=== PATIENT | male | born 1980 | race Caucasian/White ===

== ENCOUNTER 2021-09-20 17:48 | Emergency (ER) | payer OTHER ==
[~2021-09-20 17:48] MED LIST: NEURONTIN 300300 MG PO; PREDNISONE 50 M50 MG PO
[2021-09-20] MEDS ORDERED: CYCLOBENZAPRINE10 MG PO (22:12)
[2021-09-20] MEDS ORDERED: PREDNISONE 10 M10 MG PO (22:12)
[2021-09-20] MEDS ORDERED: IBUPROFEN800 MG PO (22:12)
== END 2021-09-20 22:30 | disposition home or self-care (01) ==
LOC: ER1 17:48
DX: M51.36 Other intervertebral disc degeneration, lumbar region (principal); F17.210 Nicotine dependence, cigarettes, uncomplicated
CPT/HCPCS: 72131; 96372; 99283; J1885; J2270; J2360